=== PATIENT | female | born 1995 | race Caucasian/White ===

== ENCOUNTER 2017-06-27 22:18 | Emergency (ER) | payer MEDICAID ==
[2017-06-27] MEDS ORDERED: IBUPROFEN 800 MG TABLET PO ONE (23:16)
--- NOTE | 2017-06-27 23:21 | ER Document Report ---
HPI - HPI Patient complains to provider of: Cold symptoms Onset: Yesterday Onset/Duration: Gradual Quality of pain: Achy Pain Level: 2 Context: Patient presents complaining of sore throat, fever body aches chest tightness and flulike symptoms. Patient reports multiple sick contacts recently. Patient denies any nausea, vomiting or diarrhea. Patient states she does have a history of asthma and noticed some wheezing at home and states that she does not presently have an inhaler at her house that she is staying right now. Associated Symptoms: Body/muscle aches, Chest pain, Fever, Sore throat. denies : Vomiting Exacerbated by: Denies Relieved by: Denies Similar symptoms previously: No Recently seen / treated by doctor: No - ROS ROS below otherwise negative: Yes Systems Reviewed and Negative: Yes All other systems reviewed and negative - CONSTITUTIONAL Constitutional: REPORTS: Fever - EENT EENT: REPORTS: Sore Throat, Congestion - CARDIOVASCULAR Cardiovascular: REPORTS: Chest pain - GASTROINTESTINAL Gastrointestinal: DENIES: Patient vomiting, Diarrhea - REPRODUCTIVE Reproductive: DENIES: : - DERM Skin Color: Normal, [place] Past Medical History - General Information source: Patient - Social History Smoking Status: Never Smoker Frequency of alcohol use: None Drug Abuse: None Occupation: Foodservice Family History: Reviewed & Not Pertinent Patient has suicidal ideation: No Patient has homicidal ideation: No Pulmonary Medical History: Reports: Hx Asthma Renal/ Medical History: Denies: Hx Peritoneal Dialysis Psychiatric Medical History: Reports: Hx Anxiety Past Surgical History: Reports: Other - Nasal surgery - Immunizations Immunizations up to date: Yes Hx Diphtheria, Pertussis, Tetanus Vaccination: Yes Vertical Provider Document - CONSTITUTIONAL Agree With Documented VS: Yes Exam Limitations: No Limitations General Appearance: WD/WN, No Apparent Distress - INFECTION CONTROL TRAVEL OUTSIDE OF THE [place] IN LAST 30 DAYS: No - HEENT HEENT: Atraumatic, Normocephalic, Pharyngeal Tenderness, Pharyngeal Erythema. negative: Tympanic Membrane Red, Tympanic Membrane Bulging Notes: clear rhinorrhea - NECK Neck: Normal Inspection, Supple. negative: Lymphadenopathy-Left, Lymphadenopathy-Right - RESPIRATORY Respiratory: Breath Sounds Normal, No Respiratory Distress - CARDIOVASCULAR Cardiovascular: Regular Rate, Regular Rhythm, No Murmur - BACK Back: Normal Inspection - MUSCULOSKELETAL/EXTREMETIES Musculoskeletal/Extremeties: FERDINAND GUILLAUME - NEURO Level of Consciousness: Awake, Alert, Appropriate Motor/Sensory: No Motor Deficit - DERM Integumentary: Warm, Dry, No Rash Course - Re-evaluation Re-evalutation: 06/28/17 00:32 Discussed with patient results of her tests. Patient is requesting that a prescription for Tamiflu be written for her. Discussed side effect profile and efficacy of medication. Patient states that she would like to have this prescription. 06/28/17 00:34 Patient reports that she has some wheezing at home. Patient left her inhaler out of town. - Laboratory Laboratory results interpreted by me: 06/28/17 00:32 Labs- Entire Visit 06/27/17 06/27/17 23:20 23:20 Influenza A (Rapid) NEGATIVE Influenza B (Rapid) POSITIVE Group A Strep Rapid NEGATIVE Discharge - Discharge Clinical Impression: Influenza B, Sore throat Fever Qualifiers: Fever type: due to other condition Qualified Code(s): R50.81 - Fever presenting with conditions classified elsewhere Condition: Stable Disposition: HOME, SELF-CARE Instructions: Influenza ([facility]), Inhaled Bronchodilators ([facility]) Additional Instructions: Return immediately for any new or worsening symptoms Followup with your primary care provider, call tomorrow to make a followup appointment Prescriptions: Naproxen [Naprosyn 250 Nmg Tablet] 1 tab PO BID #14 tablet Oseltamivir Phosphate [Tamiflu 75 mg Capsule] 75 mg PO BID #9 capsule Forms: Return to Work Referrals: [facility] [Provider Group] - Follow up as needed
[2017-06-28] MEDS ORDERED: OSELTAMIVIR PHOSPHATE 75 MG CAPSULE PO ONE (00:32)
[2017-06-28] MEDS ORDERED: ALBUTEROL SULFATE HFA (90 MCG/PUFF) 8 GM MDI (1 MDI/ER DISP) IH ONE (00:33)
[2017-06-28 01:39] VITALS: BP 125/75
== END 2017-06-28 00:55 | disposition home or self-care (01) ==
LOC: ER 22:18
DX: J11.1 Influenza due to unidentified influenza virus with other respiratory manifestations (principal); J02.9 Acute pharyngitis, unspecified; R50.81 Fever presenting with conditions classified elsewhere; M79.1 Myalgia; R07.9 Chest pain, unspecified
CPT/HCPCS: 99283; 87070; 87880; 87804; J3490 ×3

== ENCOUNTER 2017-10-27 18:23 | Emergency (ER) | payer MEDICAID ==
--- NOTE | 2017-10-27 18:58 | ER Document Report ---
ED Medical Screen (RME) - General Chief Complaint: Flu Symptoms Stated Complaint: FLU LIKE SYMTOMS Time Seen by Provider: 10/27/17 18:56 Mode of Arrival: Ambulatory Information source: Patient Notes: pt recently returned from [place]. while there she had ST and cough and went to clinic. she was prescribed 5 medicines but feels no better. TRAVEL OUTSIDE OF THE [place] IN LAST 30 DAYS: Yes COUNTRY TRAVELED TO/FROM: [place], [place] - Related Data Allergies/Adverse Reactions: No Known Allergies Allergy (Verified 05/06/15 11:32) Past Medical History Pulmonary Medical History: Reports: Hx Asthma Renal/ Medical History: Denies: Hx Peritoneal Dialysis Psychiatric Medical History: Reports: Hx Anxiety Past Surgical History: Reports: Other - Nasal surgery - Immunizations Immunizations up to date: Yes Hx Diphtheria, Pertussis, Tetanus Vaccination: Yes Physical Exam - Vital signs Vitals: Temp Pulse Resp BP Pulse Ox 99.3 F 103 H 20 130/78 H 97 10/27/17 18:28 10/27/17 18:28 10/27/17 18:28 10/27/17 18:28 10/27/17 18:28 Course - Vital Signs Vital signs: Temp Pulse Resp BP Pulse Ox 99.3 F 103 H 20 130/78 H 97 10/27/17 18:28 10/27/17 18:28 10/27/17 18:28 10/27/17 18:28 10/27/17 18:28
[2017-10-27 19:39] LABS: ABSOLUTE EOSINOPHILS # (AUTO) 0.1 10^3/uL (0.0-0.6); ABSOLUTE LYMPHOCYTES (AUTO) 2.5 10^3/uL (0.5-4.7); ABSOLUTE MONOCYTES (AUTO) 1.2 10^3/uL (0.1-1.4); ABSOLUTE NEUT (AUTO) 3.7 10^3/uL (1.7-8.2); BASOPHILS % (AUTO) 0.6 % (0-2); EOSINOPHILS % (AUTO) 1.9 % (0-6); HEMATOCRIT 40.9 % (36.0-47.0); HEMOGLOBIN 13.9 g/dL (12.0-15.5); MEAN CORPUSCULAR HEMOGLOBIN 28.9 pg (27.0-33.4); MEAN CORPUSCULAR HGB CONC 34.1 g/dL (32.0-36.0); MEAN CORPUSCULAR VOLUME 85 fl (80-97); MONOCYTES % (AUTO) 15.2 % (3-13); PLATELET COUNT 292 10^3/uL (150-450); RED BLOOD COUNT 4.82 10^6/uL (3.72-5.28); RED CELL DISTRIBUTION WIDTH 13.4 % (11.5-14.0); SEGMENTED NEUTROPHILS % (AUTO) 49.3 % (42-78); TOTAL CELLS COUNTED % (AUTO) 100 %; WHITE BLOOD COUNT 7.6 10^3/uL (4.0-10.5)
--- NOTE | 2017-10-27 19:42 | RADIOLOGY REPORT (SQ) ---
EXAM DESCRIPTION: CHEST PA/LAT COMPLETED DATE/TIME: 10/27/2017 7:23 pm REASON FOR STUDY: cough COMPARISON: 07/20/2013. EXAM PARAMETERS: NUMBER OF VIEWS: two views TECHNIQUE: Digital Frontal and Lateral radiographic views of the chest acquired. RADIATION DOSE: NA LIMITATIONS: none FINDINGS: LUNGS AND PLEURA: No opacities, masses or pneumothorax. No pleural effusion. MEDIASTINUM AND HILAR STRUCTURES: No masses or contour abnormalities. HEART AND VASCULAR STRUCTURES: Heart normal size. No evidence for failure. BONES: No acute findings. HARDWARE: None in the chest. OTHER: No other significant finding. IMPRESSION: NO SIGNIFICANT RADIOGRAPHIC FINDING IN THE CHEST. TECHNICAL DOCUMENTATION: JOB ID: [id number] [employer]- All Rights Reserved Reading location - IP/workstation name: [email or web address]
[2017-10-27 19:47] LABS: APPEARANCE,URINE CLEAR; BILIRUBIN,URINE NEGATIVE (NEGATIVE); COLOR,URINE YELLOW; GLUCOSE, URINE NEGATIVE (NEGATIVE); KETONES,URINE NEGATIVE (NEGATIVE); LEUKOCYTE ESTERASE,URINE NEGATIVE (NEGATIVE); NITRITE,URINE NEGATIVE (NEGATIVE); PROTEIN,URINE NEGATIVE (NEGATIVE); URINE SPECIFIC GRAVITY 1.013; UROBILINOGEN,URINE NEGATIVE mg/dL (<2.0)
[2017-10-27 20:28] LABS: ALANINE AMINOTRANSFERASE 188 U/L (9-52); ALBUMIN 4.1 g/dL (3.5-5.0); ALKALINE PHOSPHATASE 44 U/L (38-126); ANION GAP 12 (5-19); ASPARTATE AMINO TRANSFERASE 114 U/L (14-36); BILIRUBIN,DIRECT 0.4 mg/dL (0.0-0.4); BILIRUBIN,TOTAL 0.4 mg/dL (0.2-1.3); BLOOD UREA NITROGEN 7 mg/dL (7-20); CALCIUM 9.5 mg/dL (8.4-10.2); CARBON DIOXIDE 27 mmol/L (22-30); CHLORIDE 102 mmol/L (98-107); GLUCOSE 89 mg/dL (75-110); SODIUM 140.9 mmol/L (137-145); TOTAL PROTEIN 7.9 g/dL (6.3-8.2)
[2017-10-27] MEDS ORDERED: ONDANSETRON ODT 4 MG TAB (6 TAB/ER DISP) PO PRN (21:11)
--- NOTE | 2017-10-27 21:13 | ER Document Report ---
ED Flu Like - General Chief Complaint: Flu Symptoms Stated Complaint: FLU LIKE SYMTOMS Time Seen by Provider: 10/27/17 18:56 Mode of Arrival: Ambulatory Notes: Patient is a 22-year-old female comes emergency department for chief complaint of cough, congestion, pain over her sinuses, and intermittent fever or chills for the past several days. She also states that she is getting intermittent nausea and feels worn out. She just got back from [place], states that she was prescribed a 3 day course of azithromycin which she completed already, she has a history of asthma, she does not smoke. She has a home inhaler she uses, states that mainly she is coughing up mucus and she will stop wheezing afterwards. She denies vomiting, neck pain, headache, abdominal pain. TRAVEL OUTSIDE OF THE [place] IN LAST 30 DAYS: Yes - Related Data Allergies/Adverse Reactions: No Known Allergies Allergy (Verified 05/06/15 11:32) Past Medical History - General Information source: Patient - Social History Smoking Status: Never Smoker Chew tobacco use (# tins/day): No Frequency of alcohol use: None Drug Abuse: None Lives with: Family Family History: Reviewed & Not Pertinent Patient has suicidal ideation: No Patient has homicidal ideation: No Pulmonary Medical History: Reports: Hx Asthma Renal/ Medical History: Denies: Hx Peritoneal Dialysis Psychiatric Medical History: Reports: Hx Anxiety Past Surgical History: Reports: Other - Nasal surgery - Immunizations Immunizations up to date: Yes Hx Diphtheria, Pertussis, Tetanus Vaccination: Yes Review of Systems - Review of Systems Constitutional: See HPI EENT: See HPI Cardiovascular: No symptoms reported Respiratory: See HPI Gastrointestinal: See HPI Genitourinary: No symptoms reported Female Genitourinary: No symptoms reported Musculoskeletal: No symptoms reported Skin: No symptoms reported Hematologic/Lymphatic: No symptoms reported Neurological/Psychological: No symptoms reported Physical Exam - Vital signs Vitals: Temp Pulse Resp BP Pulse Ox 99.3 F 103 H 20 130/78 H 97 10/27/17 18:28 10/27/17 18:28 10/27/17 18:28 10/27/17 18:28 10/27/17 18:28 Interpretation: Normal - General General appearance: Appears well, Alert In distress: None - HEENT Head: Normocephalic, Atraumatic Eyes: Normal Conjunctiva: Normal Extraocular movements intact: Yes Eyelashes: Normal Pupils: PERRL Sinus: Tenderness - Tender over bilateral maxillary sinuses, mild nasal congestion, otherwise unremarkable Nasal: Normal Mouth/Lips: Normal Mucous membranes: Normal Pharynx: Normal. No: Erythema, Exudate, Uvular edema, Potential airway comprom. Neck: Normal. No: Anterior cervical chain - Respiratory Respiratory status: No respiratory distress Chest status: Nontender Breath sounds: Normal. No: Decreased air movement, Wheezing Chest palpation: Normal - Cardiovascular Rhythm: Regular. No: Tachycardia - No tachycardia on my exam Heart sounds: Normal auscultation, S1 appreciated, S2 appreciated Murmur: No - Abdominal Inspection: Normal Distension: No distension Bowel sounds: Normal Tenderness: Nontender. No: Tender, Guarding Organomegaly: No organomegaly - Back Back: Normal, Nontender - Extremities General upper extremity: Normal inspection, Nontender, Normal color, Normal ROM , Normal temperature General lower extremity: Normal inspection, Nontender, Normal color, Normal ROM , Normal temperature, Normal weight bearing. 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 She is tender over maxillary sinuses with wincing. However she is very well-appearing, alert, clear lungs, no hypoxia, no respiratory distress, no nuchal rigidity, soft abdomen. She did develop a low-grade fever while she was here. Workup is generally unremarkable including CBC, chemistry except for mildly elevated liver functioning tests. She has no right upper quadrant pain on exam, no vomiting, no flank pain. However with fever, presenting symptoms, recent travel I discussed with patient, she requests to be tested for hepatitis. Treating with antibiotics, short tapering steroid dose because reported wheezing at home, and symptom management. Discussed with patient in detail, discussed follow-up and return precautions, patient states understanding and agreement. - Vital Signs Vital signs: Temp Pulse Resp BP Pulse Ox 98.9 F 93 24 H 121/71 97 10/27/17 21:50 10/27/17 21:50 10/27/17 21:50 10/27/17 21:50 10/27/17 21:50 - Laboratory Result Diagrams: 10/27/17 19:13 10/27/17 19:13 Laboratory results interpreted by me: 10/27/17 10/27/17 19:13 19:13 Monocytes % 15.2 H AST 114 H ALT 188 H Discharge - Discharge Clinical Impression: Cough, Elevated liver enzymes Upper respiratory infection Qualifiers: URI type: unspecified URI Qualified Code(s): J06.9 - Acute upper respiratory infection, unspecified Asthma Qualifiers: Asthma severity: mild Asthma persistence: intermittent Asthma complication type : uncomplicated Qualified Code(s): J45.20 - Mild intermittent asthma, uncomplicated Condition: Stable Disposition: HOME, SELF-CARE Additional Instructions: Your chest x-ray does not show pneumonia, your exam is consistent with an upper respiratory infection and developing sinus infection. Your other generalized symptoms including nausea could be from hepatitis A. we have results pending for this. Rest, drink plenty of fluids, take ibuprofen for fever or pain, take Tessalon for cough, take the prednisone as prescribed, use albuterol inhaler, take doxycycline as prescribed. Follow-up with your primary care. Return if you worsen including spiking fever, difficulty breathing, severe abdominal pain , or any other concerning symptoms. Prescriptions: Benzonatate [Tessalon [place] 100 mg Capsule] 100 mg PO Q8HP PRN #20 cap PRN Reason: Doxycycline Hyclate 100 mg PO BID #14 capsule Prednisone [Deltasone 10 mg Tablet] 10 mg PO ASDIR PRN #21 tablet PRN Reason: Promethazine HCl [Phenergan 25 mg Tablet] 1 - 2 tab PO Q6H PRN #15 tablet PRN Reason: Forms: Return to Work
[2017-10-27] MEDS ORDERED: DOXYCYCLINE HYCLATE 100 MG TABLET PO ONE (21:54)
[2017-10-27] MEDS ORDERED: PREDNISONE 20 MG TABLET PO ONE (21:54)
[2017-10-27] MEDS ORDERED: IBUPROFEN 600 MG TABLET PO ONE (21:55)
[2017-10-27 22:33] VITALS: BP 121/71
[2017-10-29 07:43] LABS: HEPATITIS A AB IGM Negative (Negative); HEPATITIS B CORE AB IGM Negative (Negative); HEPATITS B SURFACE ANTIGEN Negative (Negative)
[2017-10-29 08:58] LABS: HEPATITIS C VIRUS ANTIBODY 0.1 s/co ratio (0.0-0.9)
== END 2017-10-27 22:04 | disposition home or self-care (01) ==
LOC: ER 18:23
DX: J06.9 Acute upper respiratory infection, unspecified (principal); R74.8 Abnormal levels of other serum enzymes; J45.20 Mild intermittent asthma, uncomplicated; R05 Cough; R09.81 Nasal congestion; R50.9 Fever, unspecified
CPT/HCPCS: 99284; 36415; 85025; 81025; 80053; 81001; 80074; 71046; J3490 ×2; J7512